=== PATIENT | female | born 1990 | race Caucasian/White ===

== ENCOUNTER 2019-04-11 10:18 | Emergency (ER) | payer SELFPAY ==
[~2019-04-11] VITALS: Ht 170.2 cm; Wt 87.2 kg
--- NOTE | 2019-04-11 10:56 | RAD ---
Indications: Fall and pain. Three-view right elbow study: No joint effusion is seen. No acute fracture or dislocation or lytic process is evident. IMPRESSION: No acute fracture. Three-view right shoulder study: No acute fracture or dislocation or lytic process or AC joint separation is seen. There is mild degenerative spurring of the right AC joint. IMPRESSION: No acute fracture. Electronically signed by: Herbert Yan MD (04/11/2019 10:53 AM) [id number]
[2019-04-11] MEDS ORDERED: CYCLOBENZAPRINE 10 MG TABLET. ONE (11:00)
[2019-04-11] MEDS ORDERED: HYDROcodone/APAP 7.5/325MG 1 TAB TABLET PO ONE (11:00)
[2019-04-11] MEDS ORDERED: CYCLOBENZAPRINE 10 MG TABLET. PO ONE (11:00)
[2019-04-11] MEDS ORDERED: HYDROcodone/APAP 7.5/325MG 1 TAB TABLET ONE (11:00)
[2019-04-11] MEDS ORDERED: HYDR-3165 PO (11:03)
[2019-04-11] MEDS ORDERED: CYCL-331 PO (11:03)
--- NOTE | 2019-04-11 11:04 | PHYS DOC ---
Past History Past Medical History: No Pertinent History Past Surgical History: No Surgical History Alcohol Use: None Adult General Chief Complaint Chief Complaint: SHOULDER INJURY HPI HPI 28-year-old female presents with right shoulder pain. The patient slipped and fell. She landed on her right forearm and rolled her right shoulder. She now has pain at the right elbow and more significantly at the right superior shoulder. She felt like she heard a pop. She rates the pain as 8 out of 10. Moving her shoulder around is painful. She now has no pain or difficulty with her hand or wrist. She denies any other injuries. Review of Systems Review of Systems Constitutional: Denies fever or chills [] Eyes: Denies change in visual acuity, redness, or eye pain [] HENT: Denies nasal congestion or sore throat [] Respiratory: Denies cough or shortness of breath [] Cardiovascular: No additional information not addressed in HPI [] GI: Denies abdominal pain, nausea, vomiting, bloody stools or diarrhea [] : Denies dysuria or hematuria [] Musculoskeletal: Right shoulder and right elbow pain[] Integument: Denies rash or skin lesions [] Neurologic: Denies headache, focal weakness or sensory changes [] Endocrine: Denies polyuria or polydipsia [] All other systems were reviewed and found to be within normal limits, except as documented in this note. Physical Exam Physical Exam Constitutional: Well developed, well nourished, no acute distress, non-toxic appearance. [] HENT: Normocephalic, atraumatic, bilateral external ears normal, oropharynx m oist, no oral exudates, nose normal. [] Eyes: PERRLA, EOMI, conjunctiva normal, no discharge. [] Neck: Normal range of motion, no tenderness, supple, no stridor. [] Cardiovascular:Heart rate regular rhythm, no murmur [] Lungs & Thorax: Bilateral breath sounds clear to auscultation [] Abdomen: Bowel sounds normal, soft, no tenderness, no masses, no pulsatile masses. [] Skin: Warm, dry, no erythema, no rash. [] Back: No tenderness, no CVA tenderness. [] Extremities: Right supraspinatus distribution tenderness and muscle spasm. Decreased range of motion due to pain. No obvious deformity or ecchymosis.[] Neurologic: Alert and oriented X 3, normal motor function, normal sensory function, no focal deficits noted. [] Psychologic: Affect normal, judgement normal, mood tearful. [] Current Patient Data Vital Signs Vital Signs Date Time Temp Pulse Resp B/P (MAP) Pulse Ox O2 Delivery O2 Flow Rate FiO2 04/11/19 10:27 98.2 132 16 184/135 (151) 98 Room Air EKG EKG [] Radiology/Procedures Radiology/Procedures [] Impressions: Indications: Fall and pain. Three-view right elbow study: No joint effusion is seen. No acute fracture or dislocation or lytic process is evident. IMPRESSION: No acute fracture. Three-view right shoulder study: No acute fracture or dislocation or lytic process or AC joint separation is seen. There is mild degenerative spurring of the right AC joint. IMPRESSION: No acute fracture. Electronically signed by: Quynh Yan MD (04/11/2019 10:53 AM) [id number] DICTATED AND SIGNED BY: QUYNH YAN MD DATE: 04/11/19 1053 CC: REBECCA BARNES DO; PCP,NO ~ Course & Med Decision Making Course & Med Decision Making Pertinent Labs and Imaging studies reviewed. (See chart for details) The patient appears to be in quite a bit of pain. I will work her [place] 7.5 as well as Flexeril 10. Her x-rays are negative for fracture. I will discharge him on a short course of [place] 5/325 as well as Flexeril 10. She is stable for discharge at this time. [] Dragon Disclaimer Dragon Disclaimer This electronic medical record was generated, in whole or in part, using a voice recognition dictation system. Departure Departure: Impression: Primary Impression: Fall from slip, trip, or stumble Additional Impression: Shoulder contusion Disposition: 01 HOME, SELF-CARE Condition: STABLE Referrals: PCP,NO (PCP) Patient Instructions: Shoulder Pain, [id number] Scripts Hydrocodone Bit/Acetaminophen (NORCO 5-325 TABLET) 1 Each Tablet 1 TAB PO PRN Q6HRS PRN for PAIN, #10 TAB 0 Refills Prov: REBECCA BARNES DO 04/11/19 Cyclobenzaprine Hcl (CYCLOBENZAPRINE HCL) 10 Mg Tablet 1 TAB PO TID PRN for MUSCLE SPASMS, #30 TAB Prov: REBECCA BARNES DO 04/11/19 Problem Qualifiers Primary Impression: Fall from slip, trip, or stumble Encounter type: initial encounter Qualified Codes: W01.0XXA - Fall on same level from slipping, tripping and stumbling without subsequent striking against object, initial encounter Additional Impression: Shoulder contusion Encounter type: initial encounter Laterality: right Qualified Codes: S40.011A - Contusion of right shoulder, initial encounter REBECCA BARNES DO Apr 11, 2019 11:04
[2019-04-11 11:07] VITALS: BP 154/98
== END 2019-04-11 11:17 | disposition home or self-care (01) ==
LOC: ER 10:18
DX: S40.011A Contusion of right shoulder, initial encounter (principal); M25.521 Pain in right elbow; W01.0XXA Fall on same level from slipping, tripping and stumbling without subsequent striking against object, initial encounter; Y93.89 Activity, other specified; Y92.89 Other specified places as the place of occurrence of the external cause; Y99.8 Other external cause status
CPT/HCPCS: 73030; 73080; 99284